=== PATIENT | male | born 1990 | race Two or more races ===

== ENCOUNTER 2020-11-12 17:11 | Emergency (ER) | payer OTHER ==
[~2020-11-12] VITALS: Ht 170.2 cm; Wt 72.6 kg
[2020-11-12 18:03] VITALS: BP 123/73
[2020-11-12] MEDS ORDERED: cefTRIAXone SOD 1,000 MG VL IM ONE (18:30)
[2020-11-12] MEDS ORDERED: IBUPROFEN 800 MG TAB PO ONE (18:30)
== END 2020-11-12 18:45 | disposition home or self-care (01) ==
LOC: ER 17:11
DX: S60.011A Contusion of right thumb without damage to nail, initial encounter (principal); F12.10 Cannabis abuse, uncomplicated; X58.XXXA Exposure to other specified factors, initial encounter; Y93.89 Activity, other specified; Y92.89 Other specified places as the place of occurrence of the external cause; Y99.8 Other external cause status
CPT/HCPCS: 73130; 96372; 99283; J0696

== ENCOUNTER 2021-12-25 12:54 | Emergency (ER) | payer OTHER ==
[~2021-12-25] VITALS: Ht 170.2 cm; Wt 63.5 kg
[2021-12-25] MEDS ORDERED: CLIN300C8 PO (13:50)
[2021-12-25] MEDS ORDERED: IBUP800T27 PO (13:50)
[2021-12-25 14:09] VITALS: BP 120/82
== END 2021-12-25 14:25 | disposition home or self-care (01) ==
LOC: ER 12:54
DX: K08.89 Other specified disorders of teeth and supporting structures (principal)

== ENCOUNTER 2022-11-29 11:21 | Emergency (ER) | payer OTHER ==
[~2022-11-29] VITALS: Ht 167.6 cm; Wt 70.0 kg
[~2022-11-29 11:21] MED LIST: CLIN300C8 PO; IBUP800T27 PO
[2022-11-29 12:14] VITALS: BP 113/73
[2022-11-29] MEDS ORDERED: DexAMETHasone SOD PHOS 10MG/1ML VIAL INJ IM ONE (12:15)
[2022-11-29] MEDS ORDERED: FAMO20TA10 PO (12:28)
[2022-11-29] MEDS ORDERED: METH4PAK PO (12:28)
[2022-11-29] MEDS ORDERED: LORA-622 PO (12:29)
== END 2022-11-29 12:29 | disposition home or self-care (01) ==
LOC: ER 11:21
DX: L50.0 Allergic urticaria (principal); F12.10 Cannabis abuse, uncomplicated
CPT/HCPCS: 96372; 99283; J1100